=== PATIENT | female | born 1970 | race Caucasian/White ===

== ENCOUNTER 2016-08-05 23:37 | Emergency (ER) | payer BC ==
[~2016-08-05] VITALS: Ht 175.3 cm; Wt 72.9 kg
[2016-08-06 00:27] LABS: HEMATOCRIT 37.2 % (36.0-46.0); MCH 29.4 PG (29.0-34.0); MCHC 34.4 G/DL (30.0-36.0); MCV 85.5 FL (83-99); MEAN PLAT.VOLUME 9.7 uM^3 (9.5-12.4); PLATELET COUNT 355 K/uL (156-360); RBC DIS.WIDTH-CV 12.7 % (11.8-14.6); RBC DIS.WIDTH-SD 38.9 % (39-53); RED BLOOD COUNT 4.35 M/uL (3.80-5.20); WHITE BLOOD COUNT 8.9 K/uL (4.1-10.2)
[2016-08-06 00:37] LABS: CHLORIDE 104 mEq/L (99-109); POTASSIUM 3.7 mEq/L (3.7-5.4); SODIUM 140 mEq/L (136-147)
[2016-08-06 00:39] LABS: GLUCOSE 111 mg/dL (70-99)
[2016-08-06 00:41] LABS: ANION GAP 10 MEQ/L (2-14)
[2016-08-06 00:43] LABS: GFR ESTIMATE (CALCULATED) > 59 mL/min/
[2016-08-06 00:44] LABS: UREA NITROGEN (BUN) 7 mg/dL (9-23)
[2016-08-06] MEDS ORDERED: ROBITUSSIN AC,T10 ML PO (01:17)
[2016-08-06] MEDS ORDERED: AUGMENTIN875 MG PO (01:17)
[2016-08-06] MEDS ORDERED: ZITHROMAX Z-PA250 MG PO (01:17)
[2016-08-06 01:48] VITALS: BP 125/73
== END 2016-08-06 01:48 | disposition home or self-care (01) ==
LOC: EME 23:37
DX: J18.9 Pneumonia, unspecified organism (principal); J45.909 Unspecified asthma, uncomplicated
CPT/HCPCS: 71020; 80048; 85027; 94640; 99281; 99284; J8540